=== PATIENT | male | born 2000 | race African-American/Black ===

== ENCOUNTER 2022-08-01 17:42 | Emergency (ER) | payer OTHER ==
[~2022-08-01] VITALS: Ht 175.3 cm; Wt 77.3 kg
[2022-08-01] MEDS ORDERED: VALA500T42 PO (19:56)
[2022-08-01 20:48] VITALS: BP 130/62
== END 2022-08-01 20:49 | disposition home or self-care (01) ==
LOC: EMS 17:45
DX: N48.29 Other inflammatory disorders of penis (principal)
CPT/HCPCS: 86695; 86696; 87491; 87591; 99283